=== PATIENT | male | born 1975 | race Caucasian/White ===

== ENCOUNTER → 2018-12-28 | Outpatient (CLI) | payer OTHER ==
[2015-02-17 08:00] VITALS: BP 123/79
--- NOTE | 2018-12-28 18:14 | CARD ---
MR#: [id number] Date of Study: 12/28/2018 Ordering Physician: LEROY CARPIO, Referring Physician: LEROY CARPIO, Tech: Janie Schneider APPROVED REPORT EXAM: Two-dimensional and M-mode echocardiogram with Doppler and color Doppler. Other Information Quality : AverageHR: 81bpm INDICATION Murmur Mitral Regurgitation 2D DIMENSIONS RVDd3.7 (2.9-3.5cm)Left Atrium(2D)4.4 (1.6-4.0cm) IVSd1.3 (0.7-1.1cm)Aortic Root(2D)3.5 (2.0-3.7cm) LVDd5.4 (3.9-5.9cm)LVOT Diameter2.8 (1.8-2.4cm) PWd1.2 (0.7-1.1cm)LVDs3.2 (2.5-4.0cm) FS (%) 40.3 %SV97.6 ml Aortic Valve AoV Peak Wiley.102.7cm/sAoV VTI17.2cm AO Peak GR.4.2mmHgLVOT Peak Wiley.72.6cm/s LVOT VTI 12.91cmAO Mean GR.2mmHg AIDA (VMAX)3.06jh3QGV (VTI)4.50cm2 Mitral Valve MV E Sqzeprxw87.6cm/sMV E Peak Gr.115mmHg MV DECEL [id number] A Fpgwjhty28.5cm/s MV SOM71xvV/A Ratio1.7 MVA (PHT)3.39cm2 TDI E/Lateral E'7.3E/Medial E'7.6 Pulmonary Valve PV Peak Xtszgboa70.2cm/sPV Peak Grad.3mmHg Tricuspid Valve TR P. Ygnbwzkf770ny/sRAP KADVOFAD4eqTu TR Peak Gr.47moLqYUFQ08lcFy Pulmonary Vein S1 Txbwcxph55.2cm/sD2 Knykskcg23.0cm/s PVa hmtixhdy69vnzv LEFT VENTRICLE The left ventricle is normal size. There is mild concentric left ventricular hypertrophy. The left ve ntricular systolic function is normal and the ejection fraction is within normal range. The Ejection Fraction is 50-55%. There is normal LV segmental wall motion. Transmitral Doppler flow pattern is Gra de II-pseudonormal filling dynamics. RIGHT VENTRICLE The right ventricle is normal size. There is normal right ventricular wall thickness. The right ventr icular systolic function is normal. ATRIA The left atrium is mildly dilated. The right atrium size is normal. The interatrial septum is intact with no evidence for an atrial septal defect or patent foramen ovale as noted on 2-D or Doppler imagi ng. AORTIC VALVE The aortic valve is normal in structure and function. Doppler and Color Flow revealed no significant aortic regurgitation. There is no significant aortic valvular stenosis. MITRAL VALVE The mitral valve is normal in structure and function. A borderline mitral valve prolapse is present. There is no mitral valve stenosis. Doppler and Color-flow revealed moderate eccentric mitral regurgit ation. TRICUSPID VALVE The tricuspid valve is normal in structure and function. Doppler and Color Flow revealed trace tricus pid regurgitation. There is no tricuspid valve stenosis. PULMONIC VALVE The pulmonic valve is not well visualized. Doppler and Color Flow revealed no pulmonic valvular regur gitation. GREAT VESSELS The aortic root is normal in size. The IVC was not well visualized. PERICARDIAL EFFUSION There is no evidence of significant pericardial effusion. Critical Notification Critical Value: No <Conclusion> The left ventricle is normal size. The left ventricular systolic function is normal and the ejection fraction is within normal range. The Ejection Fraction is 50-55%. There is mild concentric left ventricular hypertrophy. The left atrium is mildly dilated. There is no significant aortic valvular stenosis. Doppler and Color Flow revealed no significant aortic regurgitation. Doppler and Color-flow revealed moderate eccentric mitral regurgitation. Doppler and Color Flow revealed trace tricuspid regurgitation. Eccentric mitral regurgtation as above. If clinically indicated, a FELIPA could better define the valve . Signed by : Damon Landers MD Electronically Approved : 12/28/2018 18:13:26
== END | disposition home or self-care (01) ==
LOC: ECHO 14:07
PROVIDERS: ATTEND Family Medicine
DX: I34.0 Nonrheumatic mitral (valve) insufficiency (principal); I51.7 Cardiomegaly
CPT/HCPCS: 93306

== ENCOUNTER 2019-04-28 19:54 | Emergency (ER) | payer OTHER ==
[~2019-04-28] VITALS: Ht 177.8 cm; Wt 108.9 kg
[2019-04-28 20:05] VITALS: BP 129/90
--- NOTE | 2019-04-28 21:17 | PHYS DOC ---
Past Medical History Past Medical History: Other Additional Past Medical Histor: Joint Pain (MARLA MELCHOR APRN) Past Surgical History: Tonsillectomy, Other Additional Past Surgical Histo: L knee, hernia (MARLA MELCHOR APRN) Alcohol Use: Occasionally Drug Use: None (MARLA MELCHOR APRN) Adult General Chief Complaint Chief Complaint: ABDOMINAL PAIN HPI HPI Patient is a 44 year old [male] who presents with [suprapubic abdominal pain with some incident. Reports he had been walking in [place] today, when he started to have some abdominal discomfort, states his pain has continued to worsen, states the pain felt like something red-hot was poking out from his lower abdomen. States he has never had pain like this before. He has not taken any m edicine for this. Reports he had vomited a couple times prior to coming in, states he does still feel nauseous, reports his pain has improved after resting in bed in the emergency room. States he had last bowel movement earlier today, had normal bowel movement this morning as well. (MARLA MELCHOR APRN) Review of Systems Review of Systems Constitutional: Denies fever or chills [] Eyes: Denies change in visual acuity, redness, or eye pain [] HENT: Denies nasal congestion or sore throat [] Respiratory: Denies cough or shortness of breath [] Cardiovascular: No additional information not addressed in HPI [] GI: reports abdominal pain, nausea, vomiting, Denies bloody stools or diarrhea [] : Denies dysuria or hematuria [] Musculoskeletal: Denies back pain or joint pain [] Integument: Denies rash or skin lesions [] Neurologic: Denies headache, focal weakness or sensory changes [] Endocrine: Denies polyuria or polydipsia [] All other systems were reviewed and found to be within normal limits, except as documented in this note. (MARLA MELCHOR APRN) Allergies Allergies Allergies Coded Allergies Type Severity Reaction Last Updated Verified No Known Drug Allergies 02/17/15 No (ALEC ECHOLS DO) Physical Exam Physical Exam Constitutional: Well developed, well nourished, no acute distress, non-toxic appearance. [] Eyes: PERRLA, EOMI, conjunctiva normal, no discharge. [] Neck: Normal range of motion, no tenderness, supple, no stridor. [] Cardiovascular:Heart rate regular rhythm, 2+ murmur [] Lungs & Thorax: Bilateral breath sounds clear to auscultation [] Abdomen: Bowel sounds normal, soft, suprapubic tenderness, no masses, no pulsatile masses. [] Skin: Warm, dry, no erythema, no rash. [] Back: No tenderness, no CVA tenderness. [] Extremities: No tenderness, no cyanosis, no clubbing, ROM intact, no edema. [] Neurologic: Alert and oriented X 3, normal motor function, normal sensory function, no focal deficits noted. [] Psychologic: Affect normal, judgement normal, mood normal. [] (MARLA MELCHOR APRN) Current Patient Data Vital Signs Vital Signs Date Time Temp Pulse Resp B/P (MAP) Pulse Ox O2 Delivery O2 Flow Rate FiO2 04/28/19 20:05 97.5 81 17 129/90 (103) 95 Room Air 97.5 (ECHOLS,ALEC R DO) Lab Values Laboratory Tests Test 04/28/19 20:35 04/28/19 20:40 Urine Collection Type Unknown Urine Color Yellow Urine Clarity Turbid Urine pH 8.0 Urine Specific [place] 1.020 Urine Protein Negative mg/dL (NEG-TRACE) Urine Glucose (UA) Negative mg/dL (NEG) Urine Ketones (Stick) Trace mg/dL (NEG) Urine Blood Negative (NEG) Urine Nitrite Negative (NEG) Urine Bilirubin Negative (NEG) Urine Urobilinogen Dipstick 1.0 mg/dL (0.2 mg/dL) Urine Leukocyte Esterase Negative (NEG) Urine RBC 0 /HPF (0-2) Urine WBC Rare /HPF (0-4) Urine Squamous Epithelial Cells Occ /LPF Urine Amorphous Sediment Present /HPF Urine Bacteria 0 /HPF (0-FEW) White Blood Count 10.7 x10^3/uL (4.0-11.0) Red Blood Count 4.71 x10^6/uL (4.30-5.70) Hemoglobin 14.6 g/dL (13.0-17.5) Hematocrit 41.8 % (39.0-53.0) Mean Corpuscular Volume 89 fL (79-100) Mean Corpuscular Hemoglobin 31 pg (25-35) Mean Corpuscular Hemoglobin Concent 35 g/dL (31-37) Red Cell Distribution Width 13.4 % (11.5-14.5) Platelet Count 285 x10^3/uL (140-400) Neutrophils (%) (Auto) 76 % (31-73) H Lymphocytes (%) (Auto) 15 % (24-48) L Monocytes (%) (Auto) 7 % (0-9) Eosinophils (%) (Auto) 1 % (0-3) Basophils (%) (Auto) 1 % (0-3) Neutrophils # (Auto) 8.1 x10^3uL (1.8-7.7) H Lymphocytes # (Auto) 1.6 x10^3/uL (1.0-4.8) Monocytes # (Auto) 0.8 x10^3/uL (0.0-1.1) Eosinophils # (Auto) 0.1 x10^3/uL (0.0-0.7) Basophils # (Auto) 0.1 x10^3/uL (0.0-0.2) Sodium Level 142 mmol/L (136-145) Potassium Level 3.5 mmol/L (3.5-5.1) Chloride Level 104 mmol/L (98-107) Carbon Dioxide Level 25 mmol/L (21-32) Anion Gap 13 (6-14) Blood Urea Nitrogen 23 mg/dL (8-26) Creatinine 1.2 mg/dL (0.7-1.3) Estimated GFR (Cockcroft-Gault) 66.1 BUN/Creatinine Ratio 19 (6-20) Glucose Level 99 mg/dL (70-99) Calcium Level 9.8 mg/dL (8.5-10.1) Total Bilirubin 0.3 mg/dL (0.2-1.0) Aspartate Amino Transferase (AST) 17 U/L (15-37) Alanine Aminotransferase (ALT) 26 U/L (16-63) Alkaline Phosphatase 69 U/L (46-116) Troponin I Quantitative < 0.017 ng/mL (0.000-0.055) Total Protein 7.8 g/dL (6.4-8.2) Albumin 4.4 g/dL (3.4-5.0) Albumin/Globulin Ratio 1.3 (1.0-1.7) Laboratory Tests 04/28/19 20:40 Laboratory Tests 6/29/19 20:40 (ALEC ECHOLS DO) Lab Values Laboratory Tests Test 04/28/19 20:35 04/28/19 20:40 Urine Collection Type Unknown Urine Color Yellow Urine Clarity Turbid Urine pH 8.0 Urine Specific [place] 1.020 Urine Protein Negative mg/dL (NEG-TRACE) Urine Glucose (UA) Negative mg/dL (NEG) Urine Ketones (Stick) Trace mg/dL (NEG) Urine Blood Negative (NEG) Urine Nitrite Negative (NEG) Urine Bilirubin Negative (NEG) Urine Urobilinogen Dipstick 1.0 mg/dL (0.2 mg/dL) Urine Leukocyte Esterase Negative (NEG) Urine RBC 0 /HPF (0-2) Urine WBC Rare /HPF (0-4) Urine Squamous Epithelial Cells Occ /LPF Urine Amorphous Sediment Present /HPF Urine Bacteria 0 /HPF (0-FEW) White Blood Count 10.7 x10^3/uL (4.0-11.0) Red Blood Count 4.71 x10^6/uL (4.30-5.70) Hemoglobin 14.6 g/dL (13.0-17.5) Hematocrit 41.8 % (39.0-53.0) Mean Corpuscular Volume 89 fL (79-100) Mean Corpuscular Hemoglobin 31 pg (25-35) Mean Corpuscular Hemoglobin Concent 35 g/dL (31-37) Red Cell Distribution Width 13.4 % (11.5-14.5) Platelet Count 285 x10^3/uL (140-400) Neutrophils (%) (Auto) 76 % (31-73) H Lymphocytes (%) (Auto) 15 % (24-48) L Monocytes (%) (Auto) 7 % (0-9) Eosinophils (%) (Auto) 1 % (0-3) Basophils (%) (Auto) 1 % (0-3) Neutrophils # (Auto) 8.1 x10^3uL (1.8-7.7) H Lymphocytes # (Auto) 1.6 x10^3/uL (1.0-4.8) Monocytes # (Auto) 0.8 x10^3/uL (0.0-1.1) Eosinophils # (Auto) 0.1 x10^3/uL (0.0-0.7) Basophils # (Auto) 0.1 x10^3/uL (0.0-0.2) Sodium Level 142 mmol/L (136-145) Potassium Level 3.5 mmol/L (3.5-5.1) Chloride Level 104 mmol/L (98-107) Carbon Dioxide Level 25 mmol/L (21-32) Anion Gap 13 (6-14) Blood Urea Nitrogen 23 mg/dL (8-26) Creatinine 1.2 mg/dL (0.7-1.3) Estimated GFR (Cockcroft-Gault) 66.1 BUN/Creatinine Ratio 19 (6-20) Glucose Level 99 mg/dL (70-99) Calcium Level 9.8 mg/dL (8.5-10.1) Total Bilirubin 0.3 mg/dL (0.2-1.0) Aspartate Amino Transferase (AST) 17 U/L (15-37) Alanine Aminotransferase (ALT) 26 U/L (16-63) Alkaline Phosphatase 69 U/L (46-116) Troponin I Quantitative < 0.017 ng/mL (0.000-0.055) Total Protein 7.8 g/dL (6.4-8.2) Albumin 4.4 g/dL (3.4-5.0) Albumin/Globulin Ratio 1.3 (1.0-1.7) Laboratory Tests 04/28/19 20:40 Laboratory Tests 04/28/19 20:40 (MARLA MELCHOR APRN) EKG EKG [] (MARLA MELCHOR APRN) Radiology/Procedures Radiology/Procedures Abdomen and Pelvis: No focal liver lesion. Gallbladder is normal. No biliary ductal dilatation. Spleen is unremarkable. Pancreas is normal in appearance. A 5 mm left lower pole nonobstructing renal calculus is seen. A right interpolar renal cystic lesion is seen. No ureteral or bladder calculus. No hydronephrosis or hydroureter. Bladder is unremarkable. Moderate colonic stool content is seen. Appendix is normal. No small or large bowel dilatation. No abdominal or pelvic ascites. No abdominal or pelvic lymphadenopathy. Several prominent right lower quadrant lymph nodes are seen. Small fat-containing periumbilical hernia. Bilateral fat-containing inguinal hernias are seen post-mesh repair. Bones: Osseous structures are unremarkable. IMPRESSION: 1. Several prominent right lower quadrant lymph nodes are seen. This is nonspecific but may be seen with mesenteric adenitis. 2. Appendix is normal. 3. No evidence of bowel obstruction. 4. Left interpolar nonobstructing renal calculus is seen. No hydronephrosis or hydroureter. No ureteral or right kidney calculus. Electronically signed by: Porfirio Cisneros MD (04/29/2019 12:18 AM) [facility] [] (MARLA MELCHOR APRN) Course & Med Decision Making Course & Med Decision Making Pertinent Labs and Imaging studies reviewed. (See chart for details) [Reviewed labs and findings with patient, patient reports he feels a lot better states he did eat a salad at home that he believes is probably the cause, reports the salad was approximately 2 or more weeks old and sitting the fridge.] Discussed incidental finding of kidney stone Discussed incidental findings of lymph nodes, discussed no signs of infection, no complaints of discomfort at this time. if patient has continued symptoms, consider following up with primary care (MARLA MELCHOR APRN) Dragon Disclaimer Dragon Disclaimer This electronic medical record was generated, in whole or in part, using a voice recognition dictation system. (MARLA MELCHOR APRN) Departure Departure Impression: Primary Impression: Acute gastroenteritis Additional Impression: Abdominal pain, lower Disposition: 01 HOME, SELF-CARE Condition: GOOD Referrals: LEROY CARPIO MD (PCP) Patient Instructions: Abdominal Pain Additional Instructions: As we discussed, her labs today looked good. There was no sign of any systemic infection. I'm your CAT scan they did note a 5 mm kidney stone which is sitting in your left kidney. It is not blocking anything at this time. They noticed no issues with your appendix, and no obstruction in your bowels. It is very likely that something he had eaten earlier could not cause of this discomfort that she had. Continue to drink fluids, rest, follow-up with your primary care provider. if he continues to have discomfort or if the discomfort returns again severely, please return to the emergency room. Attending Signature Attending Signature I have reviewed the PA/EGG SORTER's note and plan of care. I was available for consultation as needed during the patient's visit in the emergency department. I agree with the clinical impression, plan, and disposition. (ALEC ECHOLS DO) Problem Qualifiers MARLA MELCHOR APRN Apr 28, 2019 21:17 ALEC ECHOLS DO Apr 30, 2019 03:18
[2019-04-28 21:20] LABS: BASO # 0.1 x10^3/uL (0.0-0.2); BASO % 1 % (0-3); EOS # 0.1 x10^3/uL (0.0-0.7); EOS % 1 % (0-3); HEMATOCRIT 41.8 % (39.0-53.0); HEMOGLOBIN 14.6 g/dL (13.0-17.5); LYMPH # 1.6 x10^3/uL (1.0-4.8); LYMPH % 15 % (24-48); MEAN CORPUSCULAR HEMOGLOBIN 31 pg (25-35); MEAN CORPUSCULAR HGB CONC 35 g/dL (31-37); MEAN CORPUSCULAR VOLUME 89 fL (79-100); MONO # 0.8 x10^3/uL (0.0-1.1); MONO % 7 % (0-9); NEUT # 8.1 x10^3uL (1.8-7.7); NEUT % 76 % (31-73); PLATELET COUNT 285 x10^3/uL (140-400); RED BLOOD COUNT 4.71 x10^6/uL (4.30-5.70); RED CELL DISTRIBUTION WIDTH 13.4 % (11.5-14.5); WHITE BLOOD COUNT 10.7 x10^3/uL (4.0-11.0)
[2019-04-28 21:21] LABS: BILIRUBIN,URINE NEGATIVE (NEG); CLARITY,URINE TURBID; COLOR,URINE YELLOW; NITRITE,URINE NEGATIVE (NEG); PROTEIN,URINE NEGATIVE (NEG-TRACE)
[2019-04-28 21:28] LABS: AMORPHOUS SEDIMENT,UR PRESENT /HPF; BACTERIA,URINE 0 /HPF (0-FEW); RBC,URINE 0 /HPF (0-2); SQUAMOUS EPITHELIAL CELL,UR OCC /LPF; WBC,URINE RARE /HPF (0-4)
[2019-04-28 21:30] LABS: CALCIUM 9.8 mg/dL (8.5-10.1); CREATININE 1.2 mg/dL (0.7-1.3); GFR 66.1; POTASSIUM 3.5 mmol/L (3.5-5.1)
[2019-04-28 21:36] LABS: ALBUMIN 4.4 g/dL (3.4-5.0); ALBUMIN/GLOBULIN RATIO 1.3 (1.0-1.7); TOTAL BILIRUBIN 0.3 mg/dL (0.2-1.0); TOTAL PROTEIN 7.8 g/dL (6.4-8.2)
--- NOTE | 2019-04-29 00:21 | RAD ---
EXAM: CT Abdomen and Pelvis without IV contrast CLINICAL HISTORY: Abdominal pain, possible renal stones. COMPARISON: none TECHNIQUE: Helical CT of the abdomen and pelvis without intravenous contrast. Axial, coronal and sagittal reformatted images were generated. PQRS compliance statement - One or more of the following individualized dose reduction techniques were utilized for this study: 1. Automated exposure control 2. Adjustment of the mA and/or kV according to patient size 3. Use of iterative reconstruction technique FINDINGS: Lack of intravenous contrast limits evaluation of solid organs, vasculature, and lymph nodes. Lower chest: Lung bases are clear. Abdomen and Pelvis: No focal liver lesion. Gallbladder is normal. No biliary ductal dilatation. Spleen is unremarkable. Pancreas is normal in appearance. A 5 mm left lower pole nonobstructing renal calculus is seen. A right interpolar renal cystic lesion is seen. No ureteral or bladder calculus. No hydronephrosis or hydroureter. Bladder is unremarkable. Moderate colonic stool content is seen. Appendix is normal. No small or large bowel dilatation. No abdominal or pelvic ascites. No abdominal or pelvic lymphadenopathy. Several prominent right lower quadrant lymph nodes are seen. Small fat-containing periumbilical hernia. Bilateral fat-containing inguinal hernias are seen post-mesh repair. Bones: Osseous structures are unremarkable. IMPRESSION: 1. Several prominent right lower quadrant lymph nodes are seen. This is nonspecific but may be seen with mesenteric adenitis. 2. Appendix is normal. 3. No evidence of bowel obstruction. 4. Left interpolar nonobstructing renal calculus is seen. No hydronephrosis or hydroureter. No ureteral or right kidney calculus. Electronically signed by: Porfirio Cisneros MD (04/29/2019 12:18 AM) [facility]
== END 2019-04-29 00:55 | disposition home or self-care (01) ==
LOC: ER 19:54
DX: K52.9 Noninfective gastroenteritis and colitis, unspecified (principal); Z98.890 Other specified postprocedural states
CPT/HCPCS: 36415; 74176; 80053; 81001; 84484; 85025; 99285-25

== ENCOUNTER 2019-05-13 18:40 | Emergency (ER) | payer OTHER ==
[~2019-05-13] VITALS: Ht 177.8 cm; Wt 106.6 kg
[2019-05-13] MEDS ORDERED: IV NORMAL SALINE 1000ML BAG 1,000 ML IV ONE (19:00)
[2019-05-13] MEDS ORDERED: ONDANSETRON PF 4 MG/2 ML VIAL. IV ONE (19:00)
[2019-05-13] MEDS ORDERED: MORPHINE SULFATE 4 MG/ML VIAL. IV ONE (19:00)
[2019-05-13] MEDS ORDERED: KETOROLAC 15 MG/ML VIAL. IV ONE (19:00)
--- NOTE | 2019-05-13 19:04 | PHYS DOC ---
Past Medical History Past Medical History: Other Additional Past Medical Histor: Joint Pain (ALEC BENDER APRN) Past Surgical History: Tonsillectomy, Other Additional Past Surgical Histo: L knee, hernia (ALEC BENDER APRN) Alcohol Use: Occasionally Drug Use: None (ALEC BENDER APRN) Adult General Chief Complaint Chief Complaint: FLANK PAIN HPI HPI Patient is a 44 year old male presents with left flank pain has been ongoing since 3:30 PM today. The patient also states he started having left spicular pain that started about an hour ago. The patient appears in severe pain and rates his pain as 10 out of 10 in severity, and states it is sharp in character. The patient has not taking medicines prior to arrival. (ALEC BENDER APRN) Review of Systems Review of Systems Constitutional: Denies fever or chills [] Eyes: Denies change in visual acuity, redness, or eye pain [] HENT: Denies nasal congestion or sore throat [] Respiratory: Denies cough or shortness of breath [] Cardiovascular: No additional information not addressed in HPI [] GI: Reports L flank pain, nausea, Denies vomiting, bloody stools or diarrhea [] : Denies dysuria or hematuria. Reports L testicular pain. Musculoskeletal: Reports back pain Integument: Denies rash or skin lesions [] Neurologic: Denies headache, focal weakness or sensory changes [] Endocrine: Denies polyuria or polydipsia [] Complete systems were reviewed and found to be within normal limits, except as documented in this note. (ALEC BENDER APRN) Current Medications Current Medications Current Medications Medications (Trade) Dose Ordered Sig/Mahsa Start Time Stop Time Status Last Admin Dose Admin Ketorolac Tromethamine (Toradol 15mg Vial) 15 mg 1X ONCE 05/13/19 19:00 05/13/19 19:01 DC 05/13/19 19:11 15 MG Morphine Sulfate (Morphine Sulfate) 4 mg 1X ONCE 05/13/19 19:00 05/13/19 19:01 DC 05/13/19 19:11 4 MG Ondansetron HCl (Zofran) 4 mg 1X ONCE 05/13/19 19:00 05/13/19 19:01 DC 05/13/19 19:10 4 MG Sodium Chloride 1,000 ml @ 1,000 mls/hr 1X ONCE 05/13/19 19:00 05/13/19 19:59 DC 05/13/19 19:11 1,000 MLS/HR Tamsulosin HCl (Flomax) 0.4 mg 1X ONCE 05/13/19 21:45 05/13/19 21:46 DC 05/13/19 21:50 0.4 MG (KAYLIE OLMEDO MD) Allergies Allergies Allergies Coded Allergies Type Severity Reaction Last Updated Verified No Known Drug Allergies 02/17/15 No (KAYLIE OLMEDO MD) Physical Exam Physical Exam Constitutional: Well developed, well nourished, acute distress, non-toxic appearance. [] HENT: Normocephalic, atraumatic, bilateral external ears normal, oropharynx moist, no oral exudates, nose normal. [] Eyes: PERRLA, EOMI, conjunctiva normal, no discharge. [] Neck: Normal range of motion, no tenderness, supple, no stridor. [] Cardiovascular:Heart rate regular rhythm, no murmur [] Lungs & Thorax: Bilateral breath sounds clear to auscultation [] Abdomen: Bowel sounds normal, soft, left flank tenderness, no masses, no pulsatile masses. [] Skin: Warm, dry, no erythema, no rash. [] Back: Has left sided tenderness, has left CVA tenderness. [] Extremities: No tenderness, no cyanosis, no clubbing, ROM intact, no edema. [] Neurologic: Alert and oriented X 3, normal motor function, normal sensory function, no focal deficits noted. [] Psychologic: Affect normal, judgement normal, mood normal. [] : Has L testicular pain. (ALEC BENDER APRN) Current Patient Data Vital Signs Vital Signs Date Time Temp Pulse Resp B/P (MAP) Pulse Ox O2 Delivery O2 Flow Rate FiO2 05/13/19 22:39 75 15 115/66 (82) 98 05/13/19 21:18 Room Air 05/13/19 18:50 97.6 97.6 (KAYLIE OLMEDO MD) Lab Values Laboratory Tests Test 05/13/19 18:51 05/13/19 19:00 Urine Collection Type Unknown Urine Color Yellow Urine Clarity Clear Urine pH 7.5 Urine Specific [place] 1.025 Urine Protein 30 mg/dL (NEG-TRACE) Urine Glucose (UA) Negative mg/dL (NEG) Urine Ketones (Stick) Trace mg/dL (NEG) Urine Blood Large (NEG) Urine Nitrite Negative (NEG) Urine Bilirubin Negative (NEG) Urine Urobilinogen Dipstick 0.2 mg/dL (0.2 mg/dL) Urine Leukocyte Esterase Negative (NEG) Urine RBC >40 /HPF (0-2) Urine WBC Occ /HPF (0-4) Urine Squamous Epithelial Cells Occ /LPF Urine Bacteria 0 /HPF (0-FEW) Urine Mucus Marked /LPF White Blood Count 11.1 x10^3/uL (4.0-11.0) H Red Blood Count 4.63 x10^6/uL (4.30-5.70) Hemoglobin 14.2 g/dL (13.0-17.5) Hematocrit 41.3 % (39.0-53.0) Mean Corpuscular Volume 89 fL (79-100) Mean Corpuscular Hemoglobin 31 pg (25-35) Mean Corpuscular Hemoglobin Concent 35 g/dL (31-37) Red Cell Distribution Width 12.6 % (11.5-14.5) Platelet Count 273 x10^3/uL (140-400) Neutrophils (%) (Auto) 83 % (31-73) H Lymphocytes (%) (Auto) 9 % (24-48) L Monocytes (%) (Auto) 7 % (0-9) Eosinophils (%) (Auto) 1 % (0-3) Basophils (%) (Auto) 1 % (0-3) Neutrophils # (Auto) 9.3 x10^3/uL (1.8-7.7) H Lymphocytes # (Auto) 1.0 x10^3/uL (1.0-4.8) Monocytes # (Auto) 0.8 x10^3/uL (0.0-1.1) Eosinophils # (Auto) 0.1 x10^3/uL (0.0-0.7) Basophils # (Auto) 0.1 x10^3/uL (0.0-0.2) Sodium Level 143 mmol/L (136-145) Potassium Level 4.2 mmol/L (3.5-5.1) Chloride Level 105 mmol/L (98-107) Carbon Dioxide Level 27 mmol/L (21-32) Anion Gap 11 (6-14) Blood Urea Nitrogen 23 mg/dL (8-26) Creatinine 1.4 mg/dL (0.7-1.3) H Estimated GFR (Cockcroft-Gault) 55.3 BUN/Creatinine Ratio 16 (6-20) Glucose Level 113 mg/dL (70-99) H Calcium Level 9.3 mg/dL (8.5-10.1) Total Bilirubin 0.3 mg/dL (0.2-1.0) Aspartate Amino Transferase (AST) 16 U/L (15-37) Alanine Aminotransferase (ALT) 24 U/L (16-63) Alkaline Phosphatase 68 U/L (46-116) Total Protein 7.9 g/dL (6.4-8.2) Albumin 4.3 g/dL (3.4-5.0) Albumin/Globulin Ratio 1.2 (1.0-1.7) Lipase 107 U/L (73-393) Laboratory Tests 05/13/19 19:00 Laboratory Tests 05/13/19 19:00 (KAYLIE OLMEDO MD) Lab Values Laboratory Tests Test 05/13/19 18:51 05/13/19 19:00 Urine Collection Type Unknown Urine Color Yellow Urine Clarity Clear Urine pH 7.5 Urine Specific [place] 1.025 Urine Protein 30 mg/dL (NEG-TRACE) Urine Glucose (UA) Negative mg/dL (NEG) Urine Ketones (Stick) Trace mg/dL (NEG) Urine Blood Large (NEG) Urine Nitrite Negative (NEG) Urine Bilirubin Negative (NEG) Urine Urobilinogen Dipstick 0.2 mg/dL (0.2 mg/dL) Urine Leukocyte Esterase Negative (NEG) Urine RBC >40 /HPF (0-2) Urine WBC Occ /HPF (0-4) Urine Squamous Epithelial Cells Occ /LPF Urine Bacteria 0 /HPF (0-FEW) Urine Mucus Marked /LPF White Blood Count 11.1 x10^3/uL (4.0-11.0) H Red Blood Count 4.63 x10^6/uL (4.30-5.70) Hemoglobin 14.2 g/dL (13.0-17.5) Hematocrit 41.3 % (39.0-53.0) Mean Corpuscular Volume 89 fL (79-100) Mean Corpuscular Hemoglobin 31 pg (25-35) Mean Corpuscular Hemoglobin Concent 35 g/dL (31-37) Red Cell Distribution Width 12.6 % (11.5-14.5) Platelet Count 273 x10^3/uL (140-400) Neutrophils (%) (Auto) 83 % (31-73) H Lymphocytes (%) (Auto) 9 % (24-48) L Monocytes (%) (Auto) 7 % (0-9) Eosinophils (%) (Auto) 1 % (0-3) Basophils (%) (Auto) 1 % (0-3) Neutrophils # (Auto) 9.3 x10^3/uL (1.8-7.7) H Lymphocytes # (Auto) 1.0 x10^3/uL (1.0-4.8) Monocytes # (Auto) 0.8 x10^3/uL (0.0-1.1) Eosinophils # (Auto) 0.1 x10^3/uL (0.0-0.7) Basophils # (Auto) 0.1 x10^3/uL (0.0-0.2) Sodium Level 143 mmol/L (136-145) Potassium Level 4.2 mmol/L (3.5-5.1) Chloride Level 105 mmol/L (98-107) Carbon Dioxide Level 27 mmol/L (21-32) Anion Gap 11 (6-14) Blood Urea Nitrogen 23 mg/dL (8-26) Creatinine 1.4 mg/dL (0.7-1.3) H Estimated GFR (Cockcroft-Gault) 55.3 BUN/Creatinine Ratio 16 (6-20) Glucose Level 113 mg/dL (70-99) H Calcium Level 9.3 mg/dL (8.5-10.1) Total Bilirubin 0.3 mg/dL (0.2-1.0) Aspartate Amino Transferase (AST) 16 U/L (15-37) Alanine Aminotransferase (ALT) 24 U/L (16-63) Alkaline Phosphatase 68 U/L (46-116) Total Protein 7.9 g/dL (6.4-8.2) Albumin 4.3 g/dL (3.4-5.0) Albumin/Globulin Ratio 1.2 (1.0-1.7) Lipase 107 U/L (73-393) Laboratory Tests 05/13/19 19:00 Laboratory Tests 05/13/19 19:00 (ALEC BENDER APRN) EKG EKG [] (ALEC BENDER APRN) Radiology/Procedures Radiology/Procedures [] PATIENT: CARLOS DESAI JR ACCOUNT: [id number] : 1975 LOCATION: ER AGE: 44 SEX: M EXAM STATUS: REG ER ORD. PHYSICIAN: ALEC BENDER APRN REASON: flank pain, mass on Ct PROCEDURE: RENAL COMPLETE BILATERAL Complete renal ultrasound COMPARISON: CT abdomen May 13, 2019. HISTORY: Right flank pain. Right renal mass. FINDINGS: Right renal length 12.1 cm. Normal cortical thickness and echogenicity. No hydronephrosis. Exophytic from the right renal interpolar lateral cortex there is a 2.6 x 2.4 x 2.7 cm unilocular anechoic cyst with a single thin internal septation, no thickened septations, intracystic nodules or internal vascularity, this is Bosniak 2. Left renal length 12.3 cm. Normal cortical thickness and echogenicity. No mass or hydronephrosis. Mild distention of the urinary bladder. No bladder calculi or masses documented. Aorta and IVC not visualized bowel gas shadowing. IMPRESSION: Right renal interpolar exophytic unilocular anechoic cyst with a single thin internal septation. This is Bosniak 2. Electronically signed by: Pablo uLna MD (05/13/2019 9:38 PM) [facility] DICTATED and SIGNED BY: PABLO LUNA MD DATE: 05/13/192137 PATIENT: CARLOS DESAI JR ACCOUNT: [id number] : 1975 LOCATION: ER AGE: 44 SEX: M EXAM STATUS: PRE ER ORD. PHYSICIAN: AELC BENDER APRN REASON: flank pain- left flank pain has been ongoing since 3:30 PM today. SX:HERNIA PROCEDURE: CT ABDOMEN PELVIS WO CONTRAST CT abdomen and pelvis without contrast PQRS statement: CT scans at this facility use dose reduction including either automated exposure control, iterative reconstructions, and /or weight based radiation dosing via mA and kV modification when appropriate to reduce radiation dose to as low as reasonably achievable. HISTORY: Left flank pain. History of hernia. COMPARISON: CT abdomen and pelvis April 28, 2018. TECHNIQUE: Helical noncontrast CT imaging of the abdomen and pelvis was acquired. Abdomen findings: Mild left renal hydronephrosis due to a 4 mm obstructing ureteral pelvic junction calculus. Right renal upper pole lateral exophytic 3 cm indeterminate hypodense lesion with internal density 26 units. Liver, gallbladder, pancreas, adrenals, spleen unremarkable. Lung bases and bones are unremarkable. Appendix is negative. No obstruction or inflammatory changes in GI tract. No abdominal fluid. Pelvis findings: No bladder calculi. Prostate, rectum and bones are unremarkable. IMPRESSION: 1. Mild left renal hydronephrosis associated with a 4 mm obstructing ureteropelvic calculus. 2. Appendix is negative. 3. 3 cm indeterminate right renal interpolar partially exophytic hypodense mass measuring 26 units in density. This could be a complicated cyst or a solid neoplastic mass based on its noncontrast CT density. Consider further assessment with outpatient renal sonography. Electronically signed by: aPblo Luna MD (05/13/2019 7:35 PM) [facility] DICTATED and SIGNED BY: PABLO LUNA MD DATE: 05/13/191934 (ALEC BENDER APRN) Course & Med Decision Making Course & Med Decision Making Pertinent Labs and Imaging studies reviewed. (See chart for details) Will get labs, CT, urine, and give supportive care. CT shows a kidney stone. Also shows possible mass. Will get ultrasound. Labs look unremarkable. Will d/c home with flomax, urine strainer, norco, and zofran and instruct to follow up with urology. (ALEC BENDER APRN) Course & Med Decision Making Staff Physician Addendum: I was working in the ER during the course of this patient's visit. I was avail able for consultation as needed, but I was not directly involved in the care of this patient. (KAYLIE OLMEDO MD) Dragon Disclaimer Dragon Disclaimer This electronic medical record was generated, in whole or in part, using a voice recognition dictation system. (ALEC BENDER APRN) Departure Departure Impression: Primary Impression: Kidney stones Disposition: HOME, SELF-CARE Condition: STABLE Referrals: LEROY CARPIO MD (PCP) MARLA MOCK MD Patient Instructions: Diet for Kidney Stones, Kidney Stones Additional Instructions: Thank you for visiting [facility]. We appreciate you trusting us with your care. If any additional problems come up don't hesitate to return to visit us. Please follow up with your primary care provider so they can plan additional care if needed and know about the problem that you had. If symptoms worsen come back to the Emergency Department. Any concerning symptoms that start such as chest pain, shortness of air, weakness or numbness on one side of the body, running high fevers or any other concerning symptoms return to the ER. Please fill your medications at any pharmacy and follow the prescription instructions. Please strain your urine and bring stone to Urology. Scripts Ondansetron (ONDANSETRON ODT) 4 Mg Tab.rapdis 1 TAB PO PRN Q6-8HRS PRN for NAUSEA, #16 TAB Prov: ALEC BENDER APRN 05/13/19 Tamsulosin Hcl (FLOMAX) 0.4 Mg Cap.er.24h 1 CAP PO DAILY, #30 CAP 11 Refills Prov: ALEC BENDER APRN 05/13/19 Hydrocodone/Apap 5-325 (NORCO 5-325 TABLET) 1 Each Tablet 1 TAB PO QID PRN for PAIN for 3 Days, #12 TAB Prov: ALEC BENDER APRN 05/13/19 ALEC BENDER APRN May 13, 2019 19:04 KAYLIE OLMEDO MD May 14, 2019 18:08
[2019-05-13 19:06] LABS: BILIRUBIN,URINE NEGATIVE (NEG); CLARITY,URINE CLEAR; COLOR,URINE YELLOW; NITRITE,URINE NEGATIVE (NEG); PH,URINE 7.5; PROTEIN,URINE 30 mg/dL (NEG-TRACE); UROBILINOGEN,URINE 0.2 mg/dL (0.2 mg/dL)
[2019-05-13 19:10] LABS: BASO # 0.1 x10^3/uL (0.0-0.2); BASO % 1 % (0-3); EOS # 0.1 x10^3/uL (0.0-0.7); EOS % 1 % (0-3); HEMATOCRIT 41.3 % (39.0-53.0); HEMOGLOBIN 14.2 g/dL (13.0-17.5); LYMPH % 9 % (24-48); MEAN CORPUSCULAR HEMOGLOBIN 31 pg (25-35); MEAN CORPUSCULAR HGB CONC 35 g/dL (31-37); MEAN CORPUSCULAR VOLUME 89 fL (79-100); MONO # 0.8 x10^3/uL (0.0-1.1); MONO % 7 % (0-9); NEUT # 9.3 x10^3/uL (1.8-7.7); NEUT % 83 % (31-73); PLATELET COUNT 273 x10^3/uL (140-400); RED BLOOD COUNT 4.63 x10^6/uL (4.30-5.70); RED CELL DISTRIBUTION WIDTH 12.6 % (11.5-14.5); WHITE BLOOD COUNT 11.1 x10^3/uL (4.0-11.0)
[2019-05-13 19:15] LABS: BACTERIA,URINE 0 /HPF (0-FEW); RBC,URINE >40 /HPF (0-2); SQUAMOUS EPITHELIAL CELL,UR OCC /LPF; WBC,URINE OCC /HPF (0-4)
[2019-05-13 19:19] LABS: CALCIUM 9.3 mg/dL (8.5-10.1); CREATININE 1.4 mg/dL (0.7-1.3); GFR 55.3; POTASSIUM 4.2 mmol/L (3.5-5.1)
[2019-05-13 19:25] LABS: ALBUMIN 4.3 g/dL (3.4-5.0); ALBUMIN/GLOBULIN RATIO 1.2 (1.0-1.7); TOTAL BILIRUBIN 0.3 mg/dL (0.2-1.0); TOTAL PROTEIN 7.9 g/dL (6.4-8.2)
--- NOTE | 2019-05-13 19:38 | RAD ---
CT abdomen and pelvis without contrast PQRS statement: CT scans at this facility use dose reduction including either automated exposure control, iterative reconstructions, and /or weight based radiation dosing via mA and kV modification when appropriate to reduce radiation dose to as low as reasonably achievable. HISTORY: Left flank pain. History of hernia. COMPARISON: CT abdomen and pelvis April 28, 2018. TECHNIQUE: Helical noncontrast CT imaging of the abdomen and pelvis was acquired. Abdomen findings: Mild left renal hydronephrosis due to a 4 mm obstructing ureteral pelvic junction calculus. Right renal upper pole lateral exophytic 3 cm indeterminate hypodense lesion with internal density 26 units. Liver, gallbladder, pancreas, adrenals, spleen unremarkable. Lung bases and bones are unremarkable. Appendix is negative. No obstruction or inflammatory changes in GI tract. No abdominal fluid. Pelvis findings: No bladder calculi. Prostate, rectum and bones are unremarkable. IMPRESSION: 1. Mild left renal hydronephrosis associated with a 4 mm obstructing ureteropelvic calculus. 2. Appendix is negative. 3. 3 cm indeterminate right renal interpolar partially exophytic hypodense mass measuring 26 units in density. This could be a complicated cyst or a solid neoplastic mass based on its noncontrast CT density. Consider further assessment with outpatient renal sonography. Electronically signed by: Jean Luna MD (05/13/2019 7:35 PM) [facility]
--- NOTE | 2019-05-13 21:41 | RAD ---
Complete renal ultrasound COMPARISON: CT abdomen May 13, 2019. HISTORY: Right flank pain. Right renal mass. FINDINGS: Right renal length 12.1 cm. Normal cortical thickness and echogenicity. No hydronephrosis. Exophytic from the right renal interpolar lateral cortex there is a 2.6 x 2.4 x 2.7 cm unilocular anechoic cyst with a single thin internal septation, no thickened septations, intracystic nodules or internal vascularity, this is Bosniak 2. Left renal length 12.3 cm. Normal cortical thickness and echogenicity. No mass or hydronephrosis. Mild distention of the urinary bladder. No bladder calculi or masses documented. Aorta and IVC not visualized bowel gas shadowing. IMPRESSION: Right renal interpolar exophytic unilocular anechoic cyst with a single thin internal septation. This is Bosniak 2. Electronically signed by: Jean Luna MD (05/13/2019 9:38 PM) [facility]
[2019-05-13] MEDS ORDERED: TAMSULOSIN 0.4 MG CAP.ER.24H. PO ONE (21:45)
[2019-05-13] MEDS ORDERED: TAMS0.4C97 PO (22:06)
[2019-05-13] MEDS ORDERED: HYDR-3164 PO (22:06)
[2019-05-13] MEDS ORDERED: ONDA4TAB12 PO (22:06)
[2019-05-13 22:39] VITALS: BP 115/66
== END 2019-05-13 22:41 | disposition home or self-care (01) ==
LOC: ER 18:40
DX: N13.2 Hydronephrosis with renal and ureteral calculous obstruction (principal); Z98.890 Other specified postprocedural states
CPT/HCPCS: 36415; 74176; 76770; 80053; 81001; 83690; 85025; 96374; 96375; 99285; J1885; J2270; J2405; J7030

== ENCOUNTER → 2020-11-06 | Outpatient (CLI) | payer OTHER ==
[~2020-11-06] MED LIST: HYDR-3164 PO; ONDA4TAB12 PO; TAMS0.4C97 PO
--- NOTE | 2020-11-06 10:46 | KCIC ---
EXAM: Thoracic spine, 3 views. HISTORY: Pain. COMPARISON: None. FINDINGS: 3 views of the thoracic spine are obtained. There is mild thoracic dextroscoliosis centered at T6. There is no listhesis. The vertebral bodies are normal in height and the disc spaces are pres erved. IMPRESSION: Mild thoracic dextroscoliosis. Electronically signed by: Cassie Estrada MD (11/06/2020 10:43 AM) [id number]
== END ==
LOC: KCIC 09:55
PROVIDERS: ATTEND Nurse Practitioner Gerontology
DX: M41.84 Other forms of scoliosis, thoracic region (principal); M54.6 Pain in thoracic spine
CPT/HCPCS: 72072